=== PATIENT | female | born 1995 | race American Indian/Alaskan Native ===

== ENCOUNTER 2024-05-12 22:52 | Inpatient (IN) | payer MEDICAID ==
[2024-05-12] MEDS ORDERED: Sennosides/Docusate Sodium 50-8.6 MG Tab PO PRN (22:55)
[2024-05-12] MEDS ORDERED: Melatonin 3 MG Tab PO PRN (22:55)
[2024-05-12] MEDS ORDERED: Ondansetron 4 MG Tab.DIS PO PRN (22:55)
[2024-05-12] MEDS ORDERED: Ondansetron 4 MG/2 ML SDV IV PRN (22:55)
[2024-05-12] MEDS ORDERED: Nicotine 14 MG/24 Hr Patch TRDERM PRN (23:06)
[2024-05-12] MEDS ORDERED: LORazepam 2 MG/ML SDV IVPUSH PRN (23:12)
[2024-05-12] MEDS ORDERED: Benzonatate 100 MG Cap PO PRN (23:51)
[2024-05-12] MEDS ORDERED: Albuterol 0.083% 2.5 MG/3 ML Neb Soln NEB PRN (23:51)
[2024-05-13] MEDS: Sodium Chloride 0.9% 1,000 ML IV SCH (00:27)
[2024-05-13] MEDS: Enoxaparin 40 MG/0.4 ML Syringe SUBCUT SCH ×2 (00:28→00:35)
[2024-05-13] MEDS: Pantoprazole 40 MG Vial IVPUSH ONE (00:28)
[2024-05-13] MEDS: Acetaminophen 325 MG Tab PO PRN (00:29)
[2024-05-13 05:11] LABS: CALCIUM 7.5 mg/dL (8.5-10.1); CREATININE 2.5 mg/dL (0.6-1.0); EST CRCL DRUG DOSING (CG) 24.28 mL/min; POTASSIUM,K 3.9 mmol/L (3.6-5.2)
[2024-05-13 05:14] LABS: HEMATOCRIT 27.5 % (34.3-46.0); HEMOGLOBIN 11.3 g/dL (11.2-15.5); MEAN CORPUSCULAR HEMOGLOBIN 39.4 pg (31.6-35.5); MEAN CORPUSCULAR HGB CONC 41.1 g/dL (31.6-35.5); MEAN CORPUSCULAR VOLUME 95.8 fL (81.4-99.0); RED BLOOD CELL COUNT 2.87 M/uL (3.77-5.24); WHITE BLOOD CELL COUNT,WBC 11.7 K/uL (3.2-11.0)
[2024-05-13 05:19] LABS: ANION GAP 11.9 mmol/L (5.0-14.0)
[2024-05-13] MEDS: Pantoprazole 40 MG Tab.CR PO SCH (07:24)
[2024-05-13] MEDS: Insulin Lispro 100 Unit/ML 3 ML KwikPen SUBCUT SCH (07:32)
[2024-05-13] MEDS: amLODIPine 5 MG Tab PO ONE (11:10)
[2024-05-13] MEDS ORDERED: Enoxaparin 30 MG/0.3 ML Syringe SUBCUT SCH (21:00)
== END 2024-05-13 13:26 | disposition home or self-care (01) | DRG 684 ==
LOC: JP.MS 22:52
PROVIDERS: ADMIT Internal Medicine; ATTEND Internal Medicine
DX: N17.9 Acute kidney failure, unspecified (principal); E86.0 Dehydration; N18.9 Chronic kidney disease, unspecified; E11.22 Type 2 diabetes mellitus with diabetic chronic kidney disease; I12.9 Hypertensive chronic kidney disease with stage 1 through stage 4 chronic kidney disease, or unspecified chronic kidney disease; F32.A Depression, unspecified; R07.81 Pleurodynia; R79.89 Other specified abnormal findings of blood chemistry; K52.9 Noninfective gastroenteritis and colitis, unspecified; Z88.8 Allergy status to other drugs, medicaments and biological substances; Z79.4 Long term (current) use of insulin; Z87.891 Personal history of nicotine dependence
CPT/HCPCS: 36415; 80048; 82947; 85027; 99222; 99238; A9270-GY; J1650; J1815; J2470; J7030